=== PATIENT | female | born 1955 | race Caucasian/White ===

== ENCOUNTER → 2016-11-03 | Outpatient (CLI) | payer BC ==
[~2016-11-03] MED LIST: ALENDRONATE SOD35 MG PO; CALTRATE 600+D PO; FOSAMAX PO; LIPITOR PO; LOPRESSOR PO; OYSTER SHELL C500 MG PO; PERCOCET5/325 PO; SERTRALINE HCL50 MG PO; VIT D; VITAL-D RX TABL1 TAB PO; ZOLOFT PO
--- NOTE | ~2016-11-03 | MY11 ---
[facility] A Service of [facility] RADIOLOGY TEXT RESULTS PATIENT: VIET ARCHULETA LOCATION: [facility] : 51 UNIT #: [id number] AGE: [address]: Alicia Birch MD SEX: F ORDER DR: [id number] [facility] [address] [place], [place] [address] [id number] O MR#: [id number] Acc #: [id number] NAME: VIET ARCHULETA : 1955 SEX: F STUDY DATE/TIME: 11/03/2016 7:56 UNIT: [facility] ROOM: STUDY DESCRIPTION: MY Mammogram Screening Dig Edis Attending Physician: Alicia Birch M.D. Referring Physician: Alicia Birch M.D. Ordering Physician: Alicia Birch M.D. Primary Care Physician: Alicia Birch M.D. MEDICAL IMAGING REPORT This report is preliminary unless electronic signature is present EXAM Screening mammogram, 11/03. INDICATION 61 year old with no personal or family history of breast cancer. No current complaints. FINDINGS Routine digital screening views of both breasts were obtained. Study was reviewed with an FDA-approved CAD device. Comparison is made with 11/01/2015, 10/30/2014, and 10/27/2013. Breast parenchyma demonstrates scattered fibroglandular densities. No new masses or suspicious microcalcifications are seen. Benign calcifications in both breasts are stable. Benign partially obscured nodule near the 12 o'clock right breast is stable. IMPRESSION Benign mammogram. Routine screen in 1 year is recommended. Patients over the age of 40 are entered into a reminder system with target due date for the next mammogram. A result letter will also be sent to the patient. BIRADS: 2 Benign finding. Dictated by... Dewayne Seaman Jr., M.D. THIS IS AN ELECTRONICALLY VERIFIED REPORT Dewayne Seaman Jr., M.D. at 11/03/2016 5:04 PM [facility] A Service of [facility] RADIOLOGY TEXT RESULTS PATIENT: VIET ARCHULETA [id number] : 51 UNIT #: [id number] AGE: [address]: Alicia Birch MD SEX: F ORDER DR: HARMONY/christian TD: 11/03/2016 10:57 JOB #: [id number] MEDICAL IMAGING REPORT Page 1 of 1 COPY
== END | disposition home or self-care (01) ==
LOC: CWCC 07:42
DX: Z12.31 Encounter for screening mammogram for malignant neoplasm of breast (principal)
CPT/HCPCS: G0202